=== PATIENT | female | born 1980 | race Two or more races ===

== ENCOUNTER 2018-01-16 20:16 | Emergency (ER) | payer OTHER ==
[2018-01-16] MEDS ORDERED: NS 1,000 ML IV ONE (20:32)
--- NOTE | 2018-01-16 20:35 | EDPHY ---
H & P Time Seen by Provider: 01/16/18 20:23 HPI/ROS: CHIEF COMPLAINT: Pelvic pain HISTORY OF PRESENT ILLNESS: 29-year-old female presents with pelvic pain. She was walking on the [place] just prior to arrival when she had sudden onset of severe pelvic pain. She walked to the bathroom, began to feel dizzy and had a near syncopal episode in the bathroom. The pain has waxed and waned, continues to be moderate/severe. Feels similar to prior menstrual pain. LMP 2 weeks ago and regular. Associated with anxiety. Has tingling in her hands and feet, associated with lower extremity pain. No fever, dysuria, vaginal discharge, vomiting or diarrhea. REVIEW OF SYSTEMS: complete 10 point ROS reviewed and is negative except for the noted elements in the HPI - Social History Alcohol Use: Other (1 beer this evening) Drug Use: None - Physical Exam Exam: General Appearance: Alert, hyperventilating, anxious Eyes: Pupils equal and round, no conjunctival pallor ENT, Mouth: Mucous membranes moist Neck: Normal inspection Respiratory: Lungs are clear to auscultation Cardiovascular: Regular rate and rhythm Gastrointestinal: Abdomen is soft, suprapubic and right lower quadrant tenderness, no peritoneal signs Neurological: A&O, nonfocal exam Skin: Warm and dry, no rash Extremities: Normal inspection, no tenderness, no carpopedal spasm Vascular: 2+ radial pulse Psychiatric: Anxious Constitutional: Initial Vital Signs Temperature (C) 36.5 C 01/16/18 20:16 Heart Rate 84 01/16/18 20:16 Respiratory Rate 30 H 01/16/18 20:16 Blood Pressure 130/104 H 01/16/18 20:16 O2 Sat (%) 97 01/16/18 20:16 O2 Delivery Mode Room Air Allergies/Adverse Reactions: aspirin Allergy (Severe, Verified 02/08/11 16:17) Swelling/neck,face,throat Home Medications: Medication Instructions Recorded Fish Oil/Dha/Epa 02/08/11 Iron 02/08/11 Medical Decision Making ED Course/Re-evaluation: This patient presents with sudden onset of severe pelvic pain, associated with hyperventilation. Stat test to r/o ectopic is negative. Pelvic ultrasound reveals a uterine polyp, no evidence of ovarian torsion or ruptured cyst. Ativan offered for anxiety, though the patient declines. Gradually, the patient's pelvic pain dissipated and then resolved. On discharge, the patient denied pelvic pain. Abdomen was soft and nontender. Pelvic ultrasound results discussed with the patient, encouraged to follow up with OBGYN regarding the uterine polyp. Pain most likely secondary to uterine cramping versus intestinal cramping, doubt renal colic, other etiology. Abdominal pain precautions given. Differential Diagnosis: Differential diagnosis includes though it is not limited to ectopic , ovarian cyst, ovarian torsion, PID, UTI, appendicitis. - Data Points Laboratory Results: Laboratory Results 01/16/18 20:30 01/16/18 20:30 Medications Given: Discontinued Medications Sodium Chloride (Ns) 1,000 mls @ 0 mls/hr IV ONCE ONE; Wide Open PRN Reason: Protocol Stop: 01/16/18 20:33 Last Admin: 01/16/18 21:06 Dose: 1,000 mls Lorazepam (Ativan Injection) 0.5 mg IVP EDNOW ONE Stop: 01/16/18 20:33 Last Admin: 01/16/18 21:07 Dose: Not Given Departure - Departure Disposition: Home, Routine, Self-Care Clinical Impression: Pelvic pain in female Condition: Good Instructions: Pelvic Pain in Women (ED) Additional Instructions: Ibuprofen 600 mg 3 times daily while the pain persists. You have a polyp in your uterus. Followup with your meal packer about this finding. Referrals: Chantelle Santos MD [Medical Doctor] - As per Instructions (Call to make an appointment.)
[2018-01-16 20:41] LABS: PLATELET COUNT 362 10^3/uL (150-400)
[2018-01-16] MEDS: LORazepam 2 MG/ML INJ IVP ONE ×2 (21:05→21:07)
[2018-01-16 21:45] VITALS: BP 111/68
== END 2018-01-16 21:44 | disposition home or self-care (01) ==
LOC: EDUNIT#
DX: R10.2 Pelvic and perineal pain (principal); E86.9 Volume depletion, unspecified; N84.0 Polyp of corpus uteri
CPT/HCPCS: 96374; G0480; J2060